=== PATIENT | female | born 1990 | race Caucasian/White ===

== ENCOUNTER 2018-06-13 21:12 | Emergency (ER) | payer MEDICAID ==
[~2018-06-13] VITALS: Ht 162.6 cm; Wt 61.4 kg
[~2018-06-13 21:12] MED LIST: NO HOME MEDS; ZOF4T PO
[2018-06-13] MEDS ORDERED: DICL50TA8 PO (22:13)
[2018-06-13 22:34] VITALS: BP 145/87
== END 2018-06-13 22:36 | disposition home or self-care (01) ==
LOC: ER 21:12
DX: S22.31XA Fracture of one rib, right side, initial encounter for closed fracture (principal); F12.90 Cannabis use, unspecified, uncomplicated; Z56.0 Unemployment, unspecified; Z88.6 Allergy status to analgesic agent; Z88.1 Allergy status to other antibiotic agents; W22.8XXA Striking against or struck by other objects, initial encounter; Y93.89 Activity, other specified; Y92.89 Other specified places as the place of occurrence of the external cause; Y99.8 Other external cause status
CPT/HCPCS: 71045; 99283

== ENCOUNTER 2022-11-30 17:59 | Emergency (ER) | payer MEDICAID ==
[~2022-11-30] VITALS: Ht 165.1 cm; Wt 74.6 kg
[~2022-11-30 17:59] MED LIST changes: +DICL50TA8 PO
[2022-11-30 18:03] VITALS: BP 149/85; PULSE 80; RESP 16; TEMP 98.6; O2SAT 100
== END 2022-11-30 20:22 | disposition home or self-care (01) ==
LOC: ER 18:00
DX: F10.129 Alcohol abuse with intoxication, unspecified (principal); Y90.9 Presence of alcohol in blood, level not specified
CPT/HCPCS: 99281